=== PATIENT | female | born 1950 | race Caucasian/White ===

== ENCOUNTER 2025-05-23 06:56 | Day surgery (SDC) | payer MEDICARE, OTHER ==
[~2025-05-23] VITALS: Ht 160 cm; Wt 91.2 kg
[~2025-05-23 06:56] MED LIST: HYDR-3972 PO; LEVO88TA7 PO; LIDOcaine 1%/PF 5ML 10 MG/ML VIAL ONE; LIDOcaine 2% Viscous 15ml cup MM ONE; METF-1203 PO; MIDAZolam 1 MG/ML 5ML VIAL ONE; ROSU20TA98 PO; ZOLP-679 PO; fentaNYL /PF 50mcg/ml 5ml ampule ONE; propofol inj 20 ML IV ONE
[2025-05-23 07:35] VITALS: BP 149/68; PULSE 63; RESP 16; TEMP 98.1; O2SAT 98
[2025-05-23] MEDS: ringers solution, lacted 1,000 ML IV SCH (08:15)
[2025-05-23] MEDS ORDERED: fentaNYL/PF 50MCG/1 ML 2ML syringe ONE (09:51)
[2025-05-23] MEDS ORDERED: MIDAZolam 1 MG/ML 5ML VIAL ONE ×2 (09:52→10:15)
[2025-05-23 10:25] VITALS: BP 129/55; PULSE 63; RESP 12; O2SAT 100
[2025-05-23 10:30] VITALS: BP 130/57; PULSE 62; RESP 12; O2SAT 99
[2025-05-23 10:40] VITALS: BP 132/57; PULSE 64; RESP 12; O2SAT 99
[2025-05-23 10:50] VITALS: BP 130/53; PULSE 57; RESP 16; O2SAT 97
[2025-05-23 11:00] VITALS: BP 132/61; PULSE 61; RESP 16; O2SAT 98
== END 2025-05-23 11:25 | disposition home or self-care (01) ==
LOC: PRE-OP 06:56
PROVIDERS: ATTEND Internal Medicine Gastroenterology
DX: R13.10 Dysphagia, unspecified (principal); K29.80 Duodenitis without bleeding; K22.2 Esophageal obstruction; K25.9 Gastric ulcer, unspecified as acute or chronic, without hemorrhage or perforation; K31.89 Other diseases of stomach and duodenum; E11.9 Type 2 diabetes mellitus without complications; E78.5 Hyperlipidemia, unspecified; E03.9 Hypothyroidism, unspecified; J43.9 Emphysema, unspecified; G47.00 Insomnia, unspecified; Z87.891 Personal history of nicotine dependence; Z79.84 Long term (current) use of oral hypoglycemic drugs; Z79.891 Long term (current) use of opiate analgesic; Z79.899 Other long term (current) drug therapy; Z90.710 Acquired absence of both cervix and uterus; Z98.84 Bariatric surgery status; Z88.1 Allergy status to other antibiotic agents; Z88.2 Allergy status to sulfonamides
CPT/HCPCS: 43239; 43450; 88305; 88342; A4620; G0500; J2250; J2704; J3010; J3490; J7120; Z7512; Z7610; 99152